=== PATIENT | male | born 1940 | race Caucasian/White ===

== ENCOUNTER → 2019-03-31 | Day surgery (SDC) | payer MEDICARE ==
[2019-03-27 14:56] LABS: BASOPHILS % 0.2 % (0.0-1.0); HEMATOCRIT 37.5 % (38.2-49.6); LYMPHOCYTES # (AUTO) 1.7 (1.0-3.2); MEAN CORPUSCULAR HEMOGLOBIN 30.2 pg (28-32); MEAN CORPUSCULAR VOLUME 94.2 fL (81-99); MONOCYTES # (AUTO) 0.3 (0.2-0.8); MONOCYTES % 4.9 % (4.4-11.3); NEUTROPHILS # (AUTO) 3.7 (2.1-6.9); NEUTROPHILS % 65.5 % (38.7-80.0); PLATELET COUNT 176 x10e3/uL (140-360); RED BLOOD COUNT 3.98 x10e6/uL (4.3-5.7); RED CELL DISTRIBUTION WIDTH 13.3 % (11.7-14.4)
[~2019-03-31] MED LIST: AMLODIPINE BESYL5 MG PO; ASPIR 8181 MG PO; BETA PROSTATE PO; COUMADIN3 MG PO; CRESTOR10 MG PO; FENOFIBRATE145 MG PO; FENTANYL CITRATE/PF 100MCG/2 ML INJ ONE; FISH OIL 1,2001 EACH PO; FUROSEMIDE40 MG PO; ISOSORBIDE MONO30 MG PO; LISINOPRIL2.5 MG PO; MECLIZINE HCL12.5 MG PO; METFORMIN HCL500 MG PO; MIDAZOLAM HCL 2 MG/2 ML VIAL ONE; MOVE FREE ULTR1 EACH PO; NIACIN500 M2 PO; NITROGLYCERIN0.4 MG SL; OR PHACO EYE KIT ONE; PREOP PHACO EYE KIT ONE; PROCERA PO; TYLENOL PO; ZYRTEC-D TABLE1 EACH PO
[2019-03-31 11:00] VITALS: BP 123/81
== END | disposition home or self-care (01) ==
LOC: OR 07:58
PROVIDERS: ATTEND Ophthalmology
DX: H25.11 Age-related nuclear cataract, right eye (principal); G47.33 Obstructive sleep apnea (adult) (pediatric); I10 Essential (primary) hypertension; I25.810 Atherosclerosis of coronary artery bypass graft(s) without angina pectoris; E11.9 Type 2 diabetes mellitus without complications; Z88.8 Allergy status to other drugs, medicaments and biological substances; Z01.812 Encounter for preprocedural laboratory examination; Z79.01 Long term (current) use of anticoagulants; Z79.84 Long term (current) use of oral hypoglycemic drugs; Z79.82 Long term (current) use of aspirin; Z95.0 Presence of cardiac pacemaker; Z95.1 Presence of aortocoronary bypass graft; Z95.5 Presence of coronary angioplasty implant and graft
CPT/HCPCS: 36415 ×2; 66984; 82948; 85025; J2250; J3010; V2632